=== PATIENT | male | born 1990 | race Caucasian/White ===

== ENCOUNTER 2020-09-25 11:00 | Outpatient (CLI) | payer OTHER | END 2020-09-25 23:59 | disposition home or self-care (01) | LOC: COV 11:00 | PROVIDERS: ATTEND Family Medicine | DX: M79.10 Myalgia, unspecified site (principal); R53.83 Other fatigue; R68.83 Chills (without fever); R07.0 Pain in throat; R09.81 Nasal congestion; R11.0 Nausea; Z20.822 Contact with and (suspected) exposure to COVID-19 ==